=== PATIENT | female | born 1960 | race Caucasian/White ===

== ENCOUNTER 2019-02-11 07:30 | Inpatient (IN) ==
[2019-02-06 11:51] LABS: Appearance,Urine HAZY; Bacteria,Urine MOD /hpf (0); Bilirubin,Urine NEG (NEG); Color,Urine YELLOW; Culture Indicated,Urine NO; Glucose,Urine (UA) NEGATIVE (NEG); Ketones,Urine NEG (NEG); Leukocyte Esterase,Urine 250 /uL (NEG); Mucus,Urine MANY /hpf (0); Nitrate,Urine POS (NEG); Protein,Urine NEG (NEG); Specific Gravity,Urine 1.026 (1.000-1.035); Urine Blood 0.03 mg/dL (<0.03); Urine RBC 23 /hpf (0-1); Urine Squamous Epithelial Cell 7 /hpf (0-4); Urine WBC 87 /hpf (0-4); Urobilinogen,Urine NEG (NEG)
[2019-02-06 12:36] LABS: Basophils # (Auto) 0.1 K/mcL (0.0-0.3); Eosinophils # (Auto) 0.1 K/mcL (0.0-0.7); Granulocytes % (Auto) 49.7 % (38.0-78.0); Hematocrit 38.4 % (36.0-48.0); Hemoglobin 12.5 g/dL (12.0-15.0); Lymphocytes % (Auto) 40.1 % (15.5-49.0); Mean Cell Volume 86.6 fL (80.0-100.0); Mean Corpuscular HGB Conc 32.6 g/dL (31.0-36.0); Monocytes # (Auto) 0.4 K/mcL (0.1-0.9); Monocytes % (Auto) 7.2 % (1.0-12.0); Platelet Count 293 K/mcL (140-440); RBC 4.43 M/mcL (4.00-5.20); Red Cell Distribution Width 13.4 % (11.5-14.5); WBC 4.9 K/mcL (4.5-11.0)
[2019-02-06 12:52] LABS: Blood Urea Nitrogen 24 mg/dl (6-20); Calcium 9.6 mg/dl (8.6-10.4); Carbon Dioxide 28 mmol/L (22-30); Chloride 102 mmol/L (96-108); Glomerular Filtration Rate 96; Glucose 92 mg/dL (70-105)
[~2019-02-11 07:30] MED LIST: CELECOXIB 200 MG CAPSULE PO SCH; PREGABALIN 75 MG CAPSULE PO SCH; ceFAZolin 2 GM in DEXTROSE 5% IN WATER 50 ML IV SCH; oxyCODONE 10 MG TAB.ER.12H PO SCH
[2019-02-11] MEDS ORDERED: SCOPOLAMINE 1 PATCH PATCH TOPICAL PRN (08:00)
[2019-02-11] MEDS ORDERED: IPRATROPIUM/ALBUTEROL 3 ML AMPUL.NEB NEB PRN ×2 (08:00→12:34)
[2019-02-11 11:28] LABS: Appearance,Urine CLEAR; Bacteria,Urine FEW /hpf (0); Bilirubin,Urine NEG (NEG); Color,Urine YELLOW; Culture Indicated,Urine YES; Glucose,Urine (UA) NEGATIVE (NEG); Ketones,Urine NEG (NEG); Leukocyte Esterase,Urine 75 /uL (NEG); Mucus,Urine FEW /hpf (0); Nitrate,Urine NEG (NEG); Protein,Urine NEG (NEG); Specific Gravity,Urine 1.025 (1.000-1.035); Urine Blood NEG mg/dL (<0.03); Urine Hyaline Cast 2 /lpf (0-2); Urine RBC 4 /hpf (0-1); Urine Squamous Epithelial Cell 3 /hpf (0-4); Urine WBC 18 /hpf (0-4); Urobilinogen,Urine NEG (NEG)
[2019-02-11] MEDS ORDERED: KETAMINE 100 MG/ML ML IV ONE (12:00)
[2019-02-11] MEDS ORDERED: PHENYLEPHRINE 10 MG/ML VIAL IV ONE (12:00)
[2019-02-11] MEDS ORDERED: KETOROLAC 30 MG/ML VIAL IV ONE (12:00)
[2019-02-11] MEDS ORDERED: SUGAMMADEX SODIUM 200 MG/2 ML VIAL IV ONE (12:00)
[2019-02-11] MEDS ORDERED: LIDOCAINE HCL/PF 100 MG/5 ML SYRINGE IV ONE (12:00)
[2019-02-11] MEDS ORDERED: SUCCINYLCHOLINE 20 MG/ML ML IV ONE (12:00)
[2019-02-11] MEDS ORDERED: TRANEXAMIC ACID 1,000 MG/10 ML VIAL IV ONE (12:00)
[2019-02-11] MEDS ORDERED: ONDANSETRON 4 MG/2 ML VIAL IV ONE (12:00)
[2019-02-11] MEDS ORDERED: ROCURONIUM 10 MG/ML ML IV ONE (12:00)
[2019-02-11] MEDS ORDERED: MIDAZOLAM 2 MG/2 ML VIAL IV ONE (12:00)
[2019-02-11] MEDS ORDERED: DEXAMETHASONE 10 MG/ML VIAL IV ONE (12:00)
[2019-02-11] MEDS ORDERED: GLYCOPYRROLATE 0.2 MG/ML VIAL IV ONE (12:00)
[2019-02-11] MEDS ORDERED: ROPIVACAINE HCL/PF 20 ML VIAL IJ ONE (12:00)
[2019-02-11] MEDS ORDERED: fentaNYL 250 MCG/5 ML VIAL IV ONE (12:00)
[2019-02-11] MEDS ORDERED: PROPOFOL 200 MG/20 ML VIAL IV ONE (12:00)
[2019-02-11] MEDS ORDERED: METOPROLOL TARTRATE 5 MG/5 ML VIAL IV PRN (12:34)
[2019-02-11] MEDS ORDERED: ONDANSETRON 4 MG/2 ML VIAL IV PRN ×2 (12:34→13:42)
[2019-02-11] MEDS ORDERED: METHOCARBAMOL 1,000 MG/10 ML VIAL IV PRN (12:34)
[2019-02-11] MEDS ORDERED: ACETAMINOPHEN 1,000 MG/100 ML BOTTLE IV ONE (12:34)
[2019-02-11] MEDS ORDERED: MEPERIDINE 50 MG/ML INJECTION IM PRN (12:34)
[2019-02-11] MEDS ORDERED: NALOXONE HCL 0.4 MG/ML VIAL IV PRN (12:34)
[2019-02-11] MEDS ORDERED: PROMETHAZINE 25 MG/ML VIAL IV PRN (12:34)
[2019-02-11] MEDS ORDERED: FLUMAZENIL 0.1 MG/ML ML IV PRN (12:34)
[2019-02-11] MEDS ORDERED: LABETALOL 5 MG/ML ML IV PRN (12:34)
[2019-02-11] MEDS ORDERED: LACTATED RINGERS 250 ML IV PRN (12:34)
[2019-02-11] MEDS ORDERED: PROMETHAZINE 25 MG/ML VIAL IM PRN (12:34)
[2019-02-11] MEDS ORDERED: BENZOCAINE/MENTHOL 1 LOZENGE PO PRN ×2 (12:34→13:42)
[2019-02-11] MEDS ORDERED: LACTATED RINGERS 1,000 ML IV SCH (12:45)
--- NOTE | 2019-02-11 13:41 | Brief Operative Note ---
Date of procedure: 02/11/19 Pre-op diagnosis: right shoulder failed rtc repair with osteoarthritis Post-op diagnosis: same Procedure: right reverse tsa Grafts/Implants: Yes Anesthesia: GETA Complications: none Surgeon: Micha [facility] Dentist: Ban Thakur Estimated blood loss (cc): 150 Specimens Removed/Pathology: none sent Condition: stable Disposition: PACU
[2019-02-11] MEDS ORDERED: TRANEXAMIC ACID 1,000 MG/10 ML VIAL IV SCH (13:42)
[2019-02-11] MEDS ORDERED: POLYETHYLENE GLYCOL 3350 17 GM PACKET PO PRN (13:42)
[2019-02-11] MEDS ORDERED: FLEETS ADULT ENEMA PR PRN (13:42)
[2019-02-11] MEDS ORDERED: BISACODYL 10 MG SUPP.RECT PR PRN (13:42)
[2019-02-11] MEDS ORDERED: MAGNESIUM HYDROXIDE 30 ML ORAL.SUSP PO PRN (13:42)
[2019-02-11] MEDS ORDERED: METHOCARBAMOL 750 MG TABLET PO PRN (13:42)
--- NOTE | 2019-02-11 13:42 | Discharge Summary ---
Ortho Discharge - TSA - Patient Instructions Diet: Regular Diet Activity: non weight bearing Total Shoulder Protocol: Leave immobilizer in place except for bathing and ROM. Abduction pillow. Continue to wear sling until seen by physician. Codman Pendulum : These exercises use momentum produced by your body to move your shoulder joint. Bend your knees and shift your weight to your front leg, then back, allowing your arm to swing in the same directions. Using the same technique, alternately shift your weight between your right and left legs, allowing your arm to swing from side to side. These exercises are also performed in counterclockwise and clockwise circular motions. Typically these exercises are performed several times per day, for a set number repetitions or minutes, such as 20 times in a row or 5 minutes at a time. Dressing Care: May shower in 2 days Patient Education: Shoulder Arthroplasty (DC) - Follow Up Plan Follow Up Appointments: Ban Thakur PA-C [Physician Resident Athletic Trainer] - 02/26/19 8:00 am Disposition: Home, Self-Care Prognosis: Good Rehab Potential: Good I certify that the patient requires SNF services: No Overall status at discharge: patient is progressing back to baseline
[2019-02-11] MEDS ORDERED: CARISOPRODOL 350 MG TABLET PO PRN (13:45)
[2019-02-11] MEDS ORDERED: ALPRAZolam 0.25 MG TABLET PO PRN (13:45)
[2019-02-11] MEDS: MEPERIDINE 25 MG/ML SYRINGE IV PRN ×2 (14:06→14:19)
[2019-02-11] MEDS: KETOROLAC 30 MG/ML VIAL IV PRN ×2 (14:07→20:08)
[2019-02-11] MEDS ORDERED: GENTAMICIN SULFATE 800 MG/20 ML VIAL IR ONE (14:15)
--- NOTE | 2019-02-11 14:30 | Operative Note ---
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 PROCEDURE: Right reverse total shoulder arthroplasty. SURGEON: Carmela Fabian M.D. PERSONAL CLOTHING LAUNDRY AIDE SURGEON: Ban Thakur PA-C. This provider's expertise and technical skill were required throughout the case. The KRISTI assisted with preoperative coordination, intraoperative retraction, wound closure, dressing and splint application, as well as postoperative documentation and care coordination. ANESTHESIA: General. ESTIMATED BLOOD LOSS: 100 mL COMPLICATIONS: None noted. SPECIMENS REMOVED: None. DRAINS: None. IMPLANTS: DePuy Delta Xtend cementless metaglene, DePuy Delta Xtend locking metaglene screw 4.5 x 24 nonlocking metaglene screw 4.5 x 18 x3, DePuy Delta Xtend glenosphere standard 38 mm, DePuy global unite Por[place]oat standard stem size 8, DePuy Delta Xtend modular eccentric epiphysis size 1 right OCASIO coated cementless, DePuy Delta Xtend humeral polyethylene cup standard 38 plus 3. INDICATIONS: The patient has had a longstanding history of worsening pain in the shoulder that has failed conservative treatment. Radiographs have confirmed advancing degenerative joint disease and a failed rotator cuff on MRI, after multiple surgeries. After a long discussion about treatment options, the patient elected to proceed with a reverse total shoulder arthroplasty. The risks and benefits were discussed with the patient in detail including, but not limited to, the risks of anesthesia, problems with the heart or lungs related to anesthesia, infection, compromise or injury to the nerves and blood vessels, deep venous thrombosis, pulmonary embolism, pneumonia, continued pain after surgery, worsening pain or symptoms after surgery, swelling, loss of motion, instability, fracture, arm length discrepancy, and need for repeat surgery. DESCRIPTION OF PROCEDURE: The patient was seen in the preanesthesia waiting room where all questions were answered and the correct side and site were identified and marked. The patient was transferred to the operating room and administered the anesthetic and given preoperative antibiotics. A time-out was then called. The patient was placed in the modified beach chair position with all prominences well padded. The extremity was prepped and draped from the fingers up to the neck. A standard deltopectoral skin incision was created. Dissection was carried down to the deltopectoral groove and the cephalic vein was isolated medially and retracted laterally with the deltoid. Retractors were placed and the coracobrachialis was split up to the coracoacromial ligament allowing retraction of the conjoined tendon. We split the subscapularis 1 cm medial to the bicipital groove and extended the split into the rotator interval. This was tagged for later repair. The supraspinatus and infraspinatus had been previously torn and retracted. The biceps was cut and a soft tissue tenodesis was performed into the anterior shoulder with #2 FiberWire. A capsular release was performed in a posterior subperiosteal direction along the humerus. The humeral head was then dislocated. We established intramedullary access and hand reamed up to get good cortical chatter with the Kartelauy Delta XTEND reverse total shoulder instrumentation. We then used the intramedullary guide and set to about 5 degrees of retroversion. The proximal humerus cut was performed and osteophytes were removed. A metal protector plate was then placed. Attention was then turned to the glenoid. Retractors were placed for optimal visualization and the labrum was excised in its entirety. A centralizing Steinmann pin was placed just into the posterior inferior quadrant in a standard fashion. We reamed over the pin to remove all the cartilage and get to a good base for the prosthesis. The drill was then placed over for the central peg. A cementless Metaglene was then impacted into place. We then drilled, measured, and placed the four screws starting inferior, then superior, then anterior, and finally posterior. The superior locking screw was lined up at the base of the coracoid process. We then impacted the head onto the Metaglene and tightened down in a standard fashion. Attention was then turned back to the humerus. Proximal reaming was performed off the intramedullary guide into the humeral head, using the eccentric guide to allow best coverage. We again set version and broached up to a stable implant. Trials were placed and good tension, motion, and stability were obtained at this point. Trials were removed and the final press fit femoral prosthesis was impacted into place with measured version. The final polyethylene was placed and the shoulder was reduced and again checked for motion, tension, and stability. We irrigated with 3 liters of antibiotic saline and closed the subscapularis with # 2 FiberWire. We irrigated again and closed the deltopectoral interval with several # 0 Vicryl figure of eight sutures. The subcutaneous layer was closed with 2-0 Vicryl and the skin was closed with Dermabond. A sterile pressure dressing was applied and the patient was placed into an abduction sling. All needle and sponge counts were correct. The patient was transferred to the recovery room in stable condition. JHumberto:aida Job ID: [id number] Doc ID: [id number] Carmela Fabian MD
[2019-02-11] MEDS: fentaNYL 100 MCG/2 ML VIAL IV PRN ×4 (14:35→14:47)
[2019-02-11] MEDS: HYDROmorphone 2 MG/ML VIAL IV PRN ×2 (14:57→15:13)
--- NOTE | 2019-02-11 15:00 | XRay Report ---
CLINICAL INFORMATION: Postoperative shoulder TECHNIQUE: AP and axillary portable right shoulder COMPARISON: Previous MRI scan dated 03/01/2016. Previous right shoulder x-ray dated 11/04/2015 FINDINGS: Status post right reverse shoulder arthroplasty. Alignment is anatomic. There is postsurgical soft tissue gas. IMPRESSION: Status post right reverse shoulder arthroplasty Interpreted and Authenticated by: Micha Rebolledo 02/11/19
[2019-02-11] MEDS: LACTATED RINGERS 1,000 ML IV SCH ×2 (16:10→18:47)
[2019-02-11] MEDS: HYDROcodone/APAP 10/325MG TABLET PO PRN ×2 (16:11→20:15)
[2019-02-11] MEDS: 0.9 % SODIUM CHLORIDE 10 ML SYRINGE IV SCH ×2 (16:11→21:49)
[2019-02-11] MEDS: ceFAZolin 1 GM VIAL IV SCH (19:11)
[2019-02-11] MEDS: DOCUSATE SODIUM 100 MG CAPSULE PO SCH (20:09)
[2019-02-11] MEDS: ONDANSETRON 4 MG ODT TABLET SL PRN (20:20)
[2019-02-11] MEDS ORDERED: SENNOSIDES 1 TABLET PO SCH (21:00)
[2019-02-11] MEDS ORDERED: QUEtiapine 25 MG TABLET PO SCH (21:00)
[2019-02-12] MEDS: ONDANSETRON 4 MG ODT TABLET SL PRN ×2 (00:13→04:21)
[2019-02-12] MEDS: HYDROcodone/APAP 10/325MG TABLET PO PRN ×3 (00:14→09:42)
[2019-02-12] MEDS: ceFAZolin 1 GM VIAL IV SCH (03:21)
[2019-02-12] MEDS: LACTATED RINGERS 1,000 ML IV SCH ×2 (03:25→07:50)
[2019-02-12] MEDS: 0.9 % SODIUM CHLORIDE 10 ML SYRINGE IV SCH (05:59)
[2019-02-12 06:25] LABS: Hematocrit 34.5 % (36.0-48.0)
--- NOTE | 2019-02-12 07:33 | Orthopedic Progress Note ---
Subjective Patient information: Note initiated : 02/12/19 at 7:32 am Service Date, if different from initiated Date: [] Patient: Rosi Frederick 58 y/o F admitted on 02/11/19 for Right Reverse Total SHoulder Arthroplasty. Chief Complaint: [] Interval history: doing well. no complaints Objective Vital signs: Vital Signs Temp Pulse Resp BP Pulse Ox 02/12/19 02:40 98.1 F 75 18 129/79 97 02/12/19 00:10 98.0 F 83 20 125/76 94 02/11/19 19:56 97.9 F 108 H 20 144/85 95 02/11/19 17:35 124 H 18 144/86 92 02/11/19 17:26 82 02/11/19 17:05 95 H 18 156/91 94 02/11/19 16:35 90 18 155/87 94 02/11/19 16:30 98.4 F 103 H 18 140/85 93 02/11/19 16:20 89 16 162/95 94 02/11/19 16:05 91 H 16 159/89 94 02/11/19 15:50 89 16 154/90 94 02/11/19 15:35 97.4 F 82 16 155/91 94 02/11/19 15:16 97.9 F 82 14 157/83 100 02/11/19 15:10 76 14 156/89 100 02/11/19 15:00 82 15 139/84 96 02/11/19 14:50 83 14 162/94 95 02/11/19 14:40 81 14 158/99 100 02/11/19 14:30 88 15 167/95 100 02/11/19 14:20 88 14 158/86 99 02/11/19 14:10 83 16 144/83 97 02/11/19 14:05 76 14 139/104 97 02/11/19 14:00 80 14 128/75 99 02/11/19 13:54 97.2 F 74 15 113/70 100 02/11/19 10:48 98.2 F 73 18 134/93 98 Intake and Output 02/11/19 02/12/19 02/12/19 21:59 05:59 13:59 Intake Total 3900 1120 Output Total 1525 1500 Balance 2375 -380 Intake: IV 2100 1000 Lactated Ringers 1,000 ml @ 125 2000 1000 mls/hr IV .Q8H [facility] Rx#: [id number] Oral 120 IV - Manual Only 1800 Output: Void Amount 1425 1500 Estimated Blood Loss 100 Other: Meal Nourishment/Supplement Percent of Meal Consumed 100% Feeding Ability Assist with Tray Set Up Nourishment/Supplement name Crackers/Fruit Urine Appearance Clear Clear Urine Color Pale Pale Urine Odor Normal Normal Weight 160 lb 11.2 oz Intake & Output: Intake & Output 02/11/19 02/12/19 02/12/19 21:59 05:59 13:59 Intake Total 3900 1120 Output Total 1525 1500 Balance 2375 -380 Weight 160 lb 11.2 oz Intake: IV 2100 1000 Lactated Ringers 1,000 ml @ 125 2000 1000 mls/hr IV .Q8H [facility] Rx#: [id number] Oral 120 IV - Manual Only 1800 Output: Void Amount 1425 1500 Estimated Blood Loss 100 Other: Meal Nourishment/Supplement Percent of Meal Consumed 100% Feeding Ability Assist with Tray Set Up Nourishment/Supplement name Crackers/Fruit Urine Appearance Clear Clear Urine Color Pale Pale Urine Odor Normal Normal Incision: Yes healing Incision clean and dry: Yes Dressing: Yes clean, Yes dry, Yes intact Weight bearing status: non Neurological exam IM: Yes alert, Yes normal gait, Yes oriented X3, Yes neurovascular intact Extremities exam IM: No calf tenderness, Yes Foot pink and warm, Yes neurovascular intact - Labs CBC & BMP: 02/12/19 04:40 02/06/19 10:32 Labs: 02/12/19 02/06/19 04:40 10:32 Hgb 11.0 L 12.5 Hct 34.5 L 38.4 Assessment and Plan (1) Osteoarthritis, shoulder pod 1 s/p reverse tsa pain control pt sling home today Status: Acute
[2019-02-12] MEDS: KETOROLAC 30 MG/ML VIAL IV PRN (07:45)
[2019-02-12] MEDS: DOCUSATE SODIUM 100 MG CAPSULE PO SCH (09:42)
== END 2019-02-12 13:00 | disposition home or self-care (01) | DRG 483 ==
LOC: MEDSUR 09:42
PROVIDERS: ADMIT Orthopaedic Surgery Sports Medicine; ATTEND Orthopaedic Surgery Sports Medicine